=== PATIENT | male | born 1985 | race Caucasian/White ===

== ENCOUNTER 2021-02-25 16:26 | Emergency (ER) | payer SELFPAY ==
[~2021-02-25] VITALS: Ht 193 cm; Wt 125.2 kg
[2021-02-25] MEDS ORDERED: LISINOPRIL10 MG PO (16:45)
--- OUTSIDE RECORDS SUMMARY | 2021-02-25 17:36 | XMS ---
PreManage Notification: DARRON MOSES [employer] Officer Events No recent Security Events currently on file CRITERIA MET - [facility] - 2 Visits in 30 Days CARE PROVIDERS There are no care providers on record at this time. Renato has no Care Guidelines for this patient. Cj VISIT COUNT (12 MO.) 1 [facility] 1 [facility] [place] TOTAL 2 NOTE: Visits indicate total known visits. ED/C VISIT TRACKING (12 MO.) 02/25/2021 16:27 [facility] [place] [facility]: Emergency COMPLAINT: - CHEST PAIN, PRESSURE, LIGHTHEADED, SOB [facility] DIAGNOSES: - Syncope - Periapical abscess without sinus - Syncope and collapse INPATIENT VISIT TRACKING (12 MO.) No inpatient visits to display in this time frame [email or web address]
--- NOTE | 2021-02-26 10:24 | EKG ---
[facility] [address] [place], [place] [address] Signed Normal sinus rhythm Normal ECG No previous ECGs available Confirmed by JOANNA SARABIA MD ([id number] on 02/26/2021 10:24:29 AM Electronically Signed By: JOANNA SARABIA MD 02/26/21 1024 PATIENT NAME: DARRON MOSES Electrocardiogram DATE OF : 85 PHYSICIAN: JOANNA SARABIA MD REPORT #: [id number] REPORT IS CONFIDENTIAL AND NOT TO BE RELEASED WITHOUT AUTHORIZATION
== END 2021-02-25 21:29 | disposition home or self-care (01) ==
LOC: ED 16:26
DX: R07.89 Other chest pain (principal); I10 Essential (primary) hypertension; Z88.8 Allergy status to other drugs, medicaments and biological substances; Z79.899 Other long term (current) drug therapy
CPT/HCPCS: 80053; 84484; 85025; 93005; 93010; 99285-25